=== PATIENT | female | born 1985 | race African-American/Black ===

== ENCOUNTER 2020-02-19 03:07 | Emergency (ER) | payer MEDICAID, OTHER ==
[~2020-02-19] VITALS: Ht 167.6 cm; Wt 83.5 kg
[2020-02-19] MEDS ORDERED: ACETAMINOPHEN 325 MG TAB PO ONE (03:30)
[2020-02-19] MEDS ORDERED: ONDANSETRON ODT 4 MG TAB PO ONE (03:30)
[2020-02-19 03:32] VITALS: BP 93/65
[2020-02-19 04:00] LABS: Basophils # (auto) 0 10 ^3/uL (0-0.2); Basophils % (auto) 0.4 % (0.0-2.0); Eosinophils # (auto) 0.1 10 ^3/uL (0-0.8); Eosinophils % (auto) 1.8 % (0.0-7.0); Hematocrit 35.3 % (36.0-46.0); Hemoglobin 11.6 g/dL (12.2-16.2); Lymphocytes # (auto) 2.6 10 ^3/uL (0.4-5.4); Lymphocytes % (auto) 37.9 % (10.0-50.0); Mean Corpuscular Hgb Conc. 32.7 g/dL (32.0-36.0); Mean Corpuscular Volume 91.9 fL (80.0-100.0); Monocytes # (auto) 0.8 10 ^3/uL (0-1.3); Monocytes % (auto) 11.6 % (0.0-12.0); Neutrophils # (auto) 3.3 10 ^3/uL (1.6-8.6); Neutrophils % (auto) 48.3 % (37.0-80.0); Platelet Count (auto) 219 10^3/uL (140-450); Red Blood Cells 3.85 10^6/uL (4.0-5.20); Red Cell Distribution Width 13.5 % (11.8-14.3); White Blood Cell 6.8 10^3/uL (4.4-10.8)
[2020-02-19 04:25] LABS: Albumin 3.5 g/dL (3.4-5.0); Calcium 8.7 mg/dL (8.5-10.1); Potassium 4.1 mmol/L (3.5-5.1)
[2020-02-19 04:28] LABS: INR 0.97 (0.9-1.15); Partial Thromboplastin Time 24.5 sec (23.0-31.2)
[2020-02-19 04:31] LABS: BUN/Creatinine Ratio 24.1; Bilirubin, Total 0.1 mg/dL (0.2-1.0); Total Protein 7.9 g/dL (6.4-8.2)
== END 2020-02-19 05:45 | disposition left against medical advice (07) ==
LOC: ER 03:08
DX: N89.8 Other specified noninflammatory disorders of vagina (principal); R10.84 Generalized abdominal pain; Z53.21 Procedure and treatment not carried out due to patient leaving prior to being seen by health care provider
CPT/HCPCS: 36415; 80053; 84702; 85025; 85610; 85730; Q0162